=== PATIENT | male | born 1985 | race Caucasian/White ===

== ENCOUNTER 2018-09-29 09:29 | Emergency (ER) | payer OTHER ==
[~2018-09-29] VITALS: Ht 170.2 cm; Wt 99.8 kg
[2018-09-29] MEDS ORDERED: TRIA15CR3 TOP (10:00)
[2018-09-29] MEDS ORDERED: PRED10 PO (10:00)
[2018-09-29] MEDS ORDERED: HYDHCL25 PO (10:00)
== END 2018-09-29 10:13 | disposition home or self-care (01) ==
LOC: ER 09:29
DX: L25.5 Unspecified contact dermatitis due to plants, except food (principal); F17.210 Nicotine dependence, cigarettes, uncomplicated
CPT/HCPCS: 96372; 99282-25; J3301

== ENCOUNTER 2018-10-11 09:53 | Emergency (ER) | payer OTHER ==
[~2018-10-11] VITALS: Ht 170.2 cm; Wt 99.8 kg
[~2018-10-11 09:53] MED LIST: HYDHCL25 PO; PRED10 PO; TRIA15CR3 TOP
[2018-10-11] MEDS ORDERED: TRIDERM28.4 GM TOP (10:08)
[2018-10-11] MEDS ORDERED: Atarax10 MG (10:16)
[2018-10-11] MEDS ORDERED: PRED10 PO (10:21)
[2018-10-11] MEDS ORDERED: TRIA15CR3 TOP (10:21)
[2018-10-11] MEDS ORDERED: HYDHCL25 PO (10:21)
== END 2018-10-11 10:26 | disposition home or self-care (01) ==
LOC: ER 09:53
DX: L25.5 Unspecified contact dermatitis due to plants, except food (principal); F17.210 Nicotine dependence, cigarettes, uncomplicated
CPT/HCPCS: 96372; 99283-25; J3301

== ENCOUNTER 2019-04-22 16:25 | Emergency (ER) | payer OTHER ==
[~2019-04-22] VITALS: Ht 167.6 cm; Wt 90.7 kg
[~2019-04-22 16:25] MED LIST changes: +Atarax10 MG; +TRIDERM28.4 GM TOP
[2019-04-22 16:44] LABS: BASOPHILS ABSOLUTE AUTO 0.02 K/mm3 (0.00-0.23); BASOPHILS PERCENT AUTO 0 % (0-2); EOSINOPHILS ABSOLUTE AUTO 0.01 K/mm3 (0.00-0.68); EOSINOPHILS PERCENT AUTO 0 % (0-6); Hematocrit 46.8 % (37.0-53.0); Hemoglobin 15.9 g/dL (13.5-17.5); IMMATURE GRAN ABSOLUTE AUTO 0.01 K/mm3 (0.00-0.10); IMMATURE GRAN PERCENT AUTO 0 % (0-1); LYMPHOCYTES ABSOLUTE AUTO 0.84 K/mm3 (0.84-5.20); LYMPHOCYTES PERCENT AUTO 15 % (21-46); MONOCYTES ABSOLUTE AUTO 0.47 K/mm3 (0.16-1.47); MONOCYTES PERCENT AUTO 8 % (4-13); Mean Corpuscular HGB 30.6 pg (26.0-34.0); Mean Corpuscular Volume 90 fL (80-100); Mean Platelet Volume 9.2 fL (9.1-12.4); NEUTROPHILS ABSOLUTE AUTO 4.33 K/mm3 (1.96-9.15); NEUTROPHILS PERCENT AUTO 76 % (41-73); Platelet Count 170 K/mm3 (150-400); RDW Coefficient Variation 12.5 % (11.7-14.2); RDW Standard Deviation 41.1 fL (35.1-46.3); White Blood Cell Count 5.68 K/mm3 (4.00-11.30)
[2019-04-22 16:58] LABS: Influenza A Negative (NEGATIVE); Influenza B Positive (NEGATIVE)
[2019-04-22 17:08] LABS: U Amphetamine Screen Not Detected; U Barbituate Screen Not Detected; U Benzodiazapine Screen Not Detected; U Buprenorphine Screen Not Detected; U Cannabinoids Screen DETECTED; U Cocaine Screen Not Detected; U Methadone Screen Not Detected; U Methamphetamine Screen DETECTED; U Opiates Screen Not Detected; U Oxycodone Screen Not Detected; U Phencyclidine Screen Not Detected; U Propoxyphene Screen Not Detected
[2019-04-22 17:20] LABS: Alanine Aminotransfer (ALT/SGP 32 U/L (12-78); Albumin, Blood 3.9 g/dL (3.4-5.0); Albumin/Globulin Ratio 1.1 (0.8-1.8); Alk Phos 60 U/L (50-136); Anion Gap 5 mmol/L (6-16); Aspartate Aminotrans (AST/SGOT 17 U/L (12-37); Bilirubin, Total 0.5 mg/dL (0.1-1.0); Blood Urea Nitrogen 7 mg/dL (8-24); Bun/Creatinine Ratio 7.1 (12.0-20.0); CO2, Blood 26 mmol/L (21-32); Calcium, Blood 8.6 mg/dL (8.5-10.1); Chloride, Blood 107 mmol/L (98-108); Creatinine, Blood 0.98 mg/dL (0.60-1.20); Globulin, Blood 3.6 g/dL (2.2-4.0); Glomerular Filtration Rate >60 (60-); Glucose, Blood 95 mg/dL (70-99); Potassium, Blood 3.6 mmol/L (3.5-5.5); Sodium, Blood 138 mmol/L (136-145); Total Protein, Blood 7.5 g/dL (6.4-8.2)
[2019-04-22] MEDS ORDERED: Zofran4 MG PO (18:14)
== END 2019-04-22 18:33 | disposition home or self-care (01) ==
LOC: ER 16:25
PROVIDERS: Physician Assistant
DX: J10.1 Influenza due to other identified influenza virus with other respiratory manifestations (principal); Z79.899 Other long term (current) drug therapy; Z79.52 Long term (current) use of systemic steroids; F17.210 Nicotine dependence, cigarettes, uncomplicated
CPT/HCPCS: 36415; 80053; 83690; 85025; 87804; 99283; J1100

== ENCOUNTER 2019-04-25 01:00 | Emergency (ER) | payer OTHER ==
[~2019-04-25] VITALS: Ht 170.2 cm; Wt 90.7 kg
[~2019-04-25 01:00] MED LIST changes: +Zofran4 MG PO
== END 2019-04-25 02:35 | disposition home or self-care (01) ==
LOC: ER 01:00
DX: J11.1 Influenza due to unidentified influenza virus with other respiratory manifestations (principal); F17.200 Nicotine dependence, unspecified, uncomplicated; J20.9 Acute bronchitis, unspecified; J18.9 Pneumonia, unspecified organism
CPT/HCPCS: 71046; 99282; A9270-GY

== ENCOUNTER 2021-11-28 14:12 | Emergency (ER) | payer OTHER ==
[~2021-11-28] VITALS: Ht 167.6 cm; Wt 90.7 kg
[2021-11-28] MEDS ORDERED: HYDR1TAB94 PO (14:30)
[2021-11-28] MEDS ORDERED: Amoxicillin500 MG PO (14:30)
== END 2021-11-28 14:31 | disposition home or self-care (01) ==
LOC: ER 14:12
DX: K04.7 Periapical abscess without sinus (principal); F17.210 Nicotine dependence, cigarettes, uncomplicated
CPT/HCPCS: 99282

== ENCOUNTER 2021-12-14 14:10 | Emergency (ER) | payer OTHER ==
[~2021-12-14] VITALS: Ht 180.3 cm; Wt 81.7 kg
[~2021-12-14 14:10] MED LIST changes: +Amoxicillin500 MG PO; +HYDR1TAB94 PO
[2021-12-14] MEDS ORDERED: AMOCLA875 PO (15:03)
== END 2021-12-14 15:00 | disposition home or self-care (01) ==
LOC: ER 14:10
DX: K08.89 Other specified disorders of teeth and supporting structures (principal); F17.210 Nicotine dependence, cigarettes, uncomplicated; Z79.899 Other long term (current) drug therapy
CPT/HCPCS: 99282

== ENCOUNTER 2024-03-31 16:24 | Emergency (ER) | payer OTHER ==
[~2024-03-31] VITALS: Ht 167.6 cm; Wt 93.9 kg
[~2024-03-31 16:24] MED LIST changes: +AMOCLA875 PO
[2024-03-31 16:32] VITALS: BP 153/100
[2024-03-31] MEDS ORDERED: Amoxicillin875 MG PO (16:58)
[2024-03-31] MEDS ORDERED: Amoxicillin 875 MG Tab PO ONE (17:00)
[2024-03-31] MEDS ORDERED: Ketorolac Tromethamine 30mg Vial IM ONE (17:15)
== END 2024-03-31 17:35 | disposition home or self-care (01) ==
LOC: ER 16:24
DX: K08.89 Other specified disorders of teeth and supporting structures (principal); F17.200 Nicotine dependence, unspecified, uncomplicated; Z91.030 Bee allergy status
CPT/HCPCS: 64400; 96372-59; 99282-25; A9270; J1885